=== PATIENT | female | born 1965 | race Caucasian/White ===

== ENCOUNTER 2019-03-02 19:31 | Emergency (ER) | payer SELFPAY ==
[~2019-03-02] VITALS: Ht 154.9 cm; Wt 78.0 kg
[2019-03-02 19:37] VITALS: BP 182/75; Ht 154.9 cm; Wt 78.0 kg
== END 2019-03-02 20:27 | disposition home or self-care (01) ==
LOC: ED 19:31 → EDSEX 19:31 → ED 20:27
DX: L03.116 Cellulitis of left lower limb (principal); W55.03XA Scratched by cat, initial encounter; Y93.89 Activity, other specified; Y92.89 Other specified places as the place of occurrence of the external cause; Y99.8 Other external cause status
CPT/HCPCS: 90715; J0295